=== PATIENT | female | born 1930 | race Caucasian/White ===

== ENCOUNTER 2020-04-21 10:54 | Emergency (ER) | payer MEDICARE, BC ==
[~2020-04-21] VITALS: Ht 160 cm; Wt 83.0 kg
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
--- NOTE | 2020-04-21 11:19 | NUR ---
TECH AT BEDSIDE TO CLEAN UP BACK OF HEAD.
[2020-04-21] MEDS ORDERED: NEOSPORIN OINT. PKT 1 PACKET ONE (11:52)
--- NOTE | 2020-04-21 12:24 | NUR ---
PATIENT CALM IN BED AWATING RESULTS. NO NEEDS AT THIS TIME. TURNED DOWN LIGHTS
[2020-04-21 12:58] VITALS: BP 121/54
== END 2020-04-21 13:00 | disposition home or self-care (01) ==
LOC: ED 12:00
DX: S00.03XA Contusion of scalp, initial encounter (principal); S50.02XA Contusion of left elbow, initial encounter; S00.91XA Abrasion of unspecified part of head, initial encounter; S09.90XA Unspecified injury of head, initial encounter; W01.0XXA Fall on same level from slipping, tripping and stumbling without subsequent striking against object, initial encounter; Y93.89 Activity, other specified; Y92.410 Unspecified street and highway as the place of occurrence of the external cause; Y99.8 Other external cause status
CPT/HCPCS: 70450; 72125; 99285